=== PATIENT | male | born 1955 | race Caucasian/White ===

== ENCOUNTER 2019-03-25 16:05 | Emergency (ER) | payer OTHER, BC ==
[~2019-03-25] VITALS: Ht 167.6 cm; Wt 68.0 kg
[2019-03-25] MEDS ORDERED: HYDR-3164 PO (16:30)
[2019-03-25] MEDS ORDERED: ORPH100T PO (16:30)
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
[2019-03-25 17:30] VITALS: BP 145/70
== END 2019-03-25 17:35 | disposition home or self-care (01) ==
LOC: ER 16:05
DX: S80.11XA Contusion of right lower leg, initial encounter (principal); S50.811A Abrasion of right forearm, initial encounter; E78.00 Pure hypercholesterolemia, unspecified; I10 Essential (primary) hypertension; V43.62XA Car passenger injured in collision with other type car in traffic accident, initial encounter; Y93.89 Activity, other specified; Y92.410 Unspecified street and highway as the place of occurrence of the external cause; Y99.8 Other external cause status
CPT/HCPCS: 73090; 73590; 99284